=== PATIENT | female | born 1985 | race Caucasian/White ===

== ENCOUNTER 2017-06-19 15:50 | Emergency (ER) | payer OTHER, MEDICAID ==
[2017-06-19] MEDS: IBUPROFEN 800 MG TAB PO (16:38)
== END 2017-06-19 18:46 | disposition home or self-care (01) ==
LOC: FTE 15:50
DX: S60.212A Contusion of left wrist, initial encounter (principal); W18.39XA Other fall on same level, initial encounter; Y92.9 Unspecified place or not applicable
CPT/HCPCS: 29125; 73110-LT; 99283-25